=== PATIENT | male | born 1960 | race Caucasian/White ===

== ENCOUNTER 2018-05-20 07:54 | Day surgery (SDC) | payer OTHER ==
[2018-05-20] MEDS ORDERED: FENTAnyl 50 MCG/ML VIAL (10:33)
[2018-05-20] MEDS ORDERED: MIDAZOLAM 1 MG/ML 2 ML INJ ×2 (10:33)
== END 2018-05-20 16:45 | disposition home or self-care (01) ==
LOC: GIL 07:54
DX: Z12.11 Encounter for screening for malignant neoplasm of colon (principal); K64.8 Other hemorrhoids
CPT/HCPCS: 45378; 88305

== ENCOUNTER 2018-10-12 09:55 | Day surgery (SDC) | payer OTHER ==
[2018-10-12] MEDS: SOD CHLORIDE 0.9% 1,000 ML IV (11:22)
[2018-10-12] MEDS ORDERED: ONDANSETRON 4 MG INJ (12:50)
[2018-10-12] MEDS ORDERED: SUCCINYLCHOLINE CHLORIDE 100 MG/5 ML SYG IV ×2 (12:50→12:52)
[2018-10-12] MEDS ORDERED: MIDAZOLAM 1 MG/ML 2 ML INJ (12:50)
[2018-10-12] MEDS ORDERED: ROCURONIUM 50 MG INJ ×2 (12:50→15:02)
[2018-10-12] MEDS ORDERED: DEXAMETHASONE 4 MG/ML 5 ML INJ (12:50)
[2018-10-12] MEDS ORDERED: CEFAZOLIN 1 GM INJ (12:50)
[2018-10-12] MEDS ORDERED: LIDOCAINE 100 MG SYRINGE (12:51)
[2018-10-12] MEDS: BUPIVACAINE 0.25%/EPI (SDV) 30 ML INJ (13:32)
[2018-10-12] MEDS: POLYMYXIN/BACITRACIN 1L IRRIG (13:33)
[2018-10-12] MEDS ORDERED: EPHEDrine 25 MG/5 ML SYG (13:48)
[2018-10-12] MEDS ORDERED: HYDROmorphONE 1 MG/5 ML IV SYRINGE IV ×2 (14:00)
[2018-10-12] MEDS ORDERED: ONDANSETRON 4 MG INJ IV ×2 (14:00→15:30)
[2018-10-12] MEDS ORDERED: KETOROLAC 30 MG INJ IV ×2 (14:00→15:30)
[2018-10-12] MEDS: CEFAZOLIN 2 GM/50 ML (PMX) 50 ML IVPB (15:00)
[2018-10-12] MEDS ORDERED: SUGAMMADEX SODIUM 200 MG/2 ML VIAL IV (15:02)
[2018-10-12] MEDS ORDERED: HYDROCODONE/APAP (5/325) TAB PO (15:30)
[2018-10-12] MEDS ORDERED: IBUPROFEN 600 MG TAB PO (15:30)
[2018-10-12] MEDS ORDERED: morphine 2 MG INJ IV (15:30)
[2018-10-12] MEDS: HYDROmorphONE 1 MG/5 ML IV SYRINGE IV ×2 (15:53→16:10)
[2018-10-12] MEDS: HYDROCODONE/APAP (5/325) TAB PO (17:05)
== END 2018-10-12 17:50 | disposition home or self-care (01) ==
LOC: SDS 09:55
DX: K43.9 Ventral hernia without obstruction or gangrene (principal); E78.5 Hyperlipidemia, unspecified; R73.03 Prediabetes
CPT/HCPCS: 49652; 88302